=== PATIENT | female | born 1955 | race Caucasian/White ===

== ENCOUNTER → 2017-04-14 | Outpatient (CLI) | payer OTHER ==
[~2017-04-14] MED LIST: LEVO112T2 PO; METO25TA3 PO; OXYC1TAB63 PO; PRAV40TA2 PO; TROS20TA PO; ZOFR4TAB PO
[2017-04-14 10:25] LABS: AUTOMATED NEUTROPHIL # 4.4 TH/MM3 (1.8-7.7); BASOPHIL # 0.1 TH/MM3 (0-0.2); BASOPHIL % 0.9 % (0.0-2.0); EOSINOPHIL # 0.1 TH/MM3 (0-0.4); EOSINOPHIL % 1.6 % (0.0-4.0); HEMATOCRIT 39.2 % (35.0-46.0); HEMO FLAGS DIFF FINAL; LYMPH % 26.6 % (9.0-44.0); LYMPHOCYTE # 1.9 TH/MM3 (1.0-4.8); MEAN CELL VOLUME 81.9 FL (80.0-100.0); MEAN CORPUSCULAR HEMOGLOBIN 27.8 PG (27.0-34.0); MONO % 8.9 % (0.0-8.0); PLATELET COUNT 317 TH/MM3 (150-450); RED BLOOD COUNT 4.78 MIL/MM3 (4.00-5.30); RED CELL DISTRIBUTION WIDTH 14.7 % (11.6-17.2); WHITE BLOOD COUNT 7.1 TH/MM3 (4.0-11.0)
[2017-04-14 10:34] LABS: APTT (PATIENT) 25.2 SEC (24.3-30.1); PROTHROMBIN TIME - PATIENT 11.2 SEC (9.8-11.6)
[2017-04-14 10:50] LABS: ANION GAP 8 MEQ/L (5-15); AST (GOT) 18 U/L (15-37); BICARBONATE 27.9 MEQ/L (21.0-32.0); BLOOD UREA NITROGEN 10 MG/DL (7-18); CHLORIDE 103 MEQ/L (98-107); GLOMERULAR FILTRATION RATE 77 ML/MIN (>89); GLUCOSE,FASTING 97 MG/DL (74-99); POTASSIUM 4.5 MEQ/L (3.5-5.1); SODIUM (NA) 139 MEQ/L (136-145)
[2017-04-14 10:51] LABS: ALT (GPT) 30 U/L (10-53)
[2017-04-14 10:53] LABS: ALKALINE PHOSPHATASE 86 U/L (45-117); TOTAL BILIRUBIN ADULT 0.4 MG/DL (0.2-1.0)
--- NOTE | 2017-04-14 11:12 | RADRPT ---
EXAM DATE/TIME: 04/14/2017 10:37 [place] COMPARISON: No previous studies available for comparison. INDICATIONS : Evaluate for pneumonia, pneumothorax and communicable diseases. Pre-op for hysterectomy. MEDICAL HISTORY : Hypertension. SURGICAL HISTORY : None. ENCOUNTER: Initial ACUITY: 1 day PAIN SCORE: 0/10 LOCATION: Bilateral chest FINDINGS: PA and lateral views of the chest demonstrate the lungs to be symmetrically aerated without evidence of mass, infiltrate or effusion. The cardiomediastinal contours are unremarkable. Osseous structure s are intact. CONCLUSION: No acute disease. Arsh Martinez MD FACR on April 14, 2017 at 11:09 Board Certified Radiologist. This report was verified electronically.
--- NOTE | 2017-04-15 14:17 | EKG ---
Date Performed: 04/14/2017 Time Performed: 10:02:21 PTAGE: 61 years EKG: NORMAL Sinus rhythm NONDIAGNOSTIC Q WAVES INFERIOR LEADS NO PRIOR TRACING DOCTOR: Abdelrahmna Navarro Interpretating Date/Time 04/15/2017 14:16:11
== END ==
LOC: CPRE 09:42
PROVIDERS: ATTEND Obstetrics & Gynecology Gynecologic Oncology
DX: Z01.810 Encounter for preprocedural cardiovascular examination (principal); Z01.812 Encounter for preprocedural laboratory examination; C54.1 Malignant neoplasm of endometrium
CPT/HCPCS: 36415; 71020; 80053; 85025; 85610; 85730; 93005

== ENCOUNTER 2017-04-21 05:26 | Observation (INO) | payer OTHER ==
[~2017-04-21] VITALS: Ht 149.9 cm; Wt 82.9 kg
[~2017-04-21 05:26] MED LIST changes: -OXYC1TAB63 PO; -ZOFR4TAB PO
[2017-04-21] MEDS: LACTATED RINGER'S 1000 ML IV PRN (06:15)
[2017-04-21] MEDS ORDERED: CHLORHEXIDINE GLUCONATE 2 % 1 PACK (2 CLOTHS) TOPICAL PRN (06:15)
[2017-04-21] MEDS ORDERED: SODIUM CHLORID 0.9% 500 ML IV PRN (06:15)
[2017-04-21] MEDS ORDERED: POVIDONE IODINE 5% (ANTISEPSIS KIT) 4 APPLICATIONS EACH NARE PRN (06:15)
[2017-04-21] MEDS ORDERED: ceFAZolin 2 GM PREMIX 50 ML IV SCH (06:15)
[2017-04-21] MEDS ORDERED: INSULIN HUMAN REGULAR 1,000 UNITS/10 ML VIAL SQ PRN (06:15)
[2017-04-21] MEDS ORDERED: METOPROLOL TARTRATE 25 MG TAB PO PRN (06:15)
[2017-04-21] MEDS ORDERED: ZOFR4TAB PO (06:18)
[2017-04-21 06:21] VITALS: BP 169/74; PULSE 83; RESP 16; TEMP 99; O2SAT 96
[2017-04-21] MEDS ORDERED: SUGAMMADEX SODIUM 200 MG/2 ML VIAL IV PUSH ONE ×2 (06:51)
[2017-04-21] MEDS ORDERED: ACETAMINOPHEN 1000 MG/100 ML VIAL IV ONE (06:52)
[2017-04-21] MEDS ORDERED: HYDROmorphone HCL PF 2 MG/ML VIAL ONE (06:52)
[2017-04-21] MEDS ORDERED: FAMOTIDINE 20 MG/2 ML VIAL ONE (07:15)
[2017-04-21] MEDS ORDERED: MIDAZOLAM HCL 2 MG/2 ML VIAL ONE (07:15)
[2017-04-21] MEDS ORDERED: fentaNYL CITRATE 250 MCG/5 ML AMP ONE ×2 (07:15→10:48)
[2017-04-21] MEDS ORDERED: HEPARIN SODIUM - SQ 10,000 UNITS/ML VIAL SQ SCH (07:30)
[2017-04-21] MEDS ORDERED: METHYLENE BLUE 10 MG/ML VIAL OTHER ONE (09:05)
[2017-04-21] MEDS ORDERED: SODIUM CHLORIDE 0.9% FLUSH 10 ML FLUSH IV FLUSH PRN (10:30)
[2017-04-21] MEDS ORDERED: oxyCODONE/ACETAMINOPHEN 5 MG/325 MG TAB PO PRN ×2 (10:30)
[2017-04-21] MEDS ORDERED: LORazepam 0.5 MG TAB PO PRN (10:30)
[2017-04-21] MEDS ORDERED: DO NOT ADM ANY ANTICOAGULANT DRUGS PRN (10:40)
[2017-04-21] MEDS: KETOROLAC TROMETHAMINE 30 MG/ML (IVP) VIAL IVP SCH ×3 (11:00→22:22)
[2017-04-21] MEDS: D5-1/2 NS + KCL 20 MEQ INJ 1,000 ML IV SCH ×2 (11:06→21:28)
[2017-04-21] MEDS ORDERED: *RESP: ALBUTEROL 2.5 MG/3 ML NEB (PRN) PERIprocedural Use ONLY NEB ONE (11:36)
[2017-04-21] MEDS ORDERED: ONDANSETRON HCL 4 MG/2 ML VIAL IV PUSH ONE (12:00)
[2017-04-21] MEDS ORDERED: VECURONIUM BROMIDE 10 MG VIAL IV ONE (12:00)
[2017-04-21] MEDS ORDERED: ePHEDrine/NS 25 MG/5 ML SYR IV ONE (12:00)
[2017-04-21] MEDS ORDERED: PROPOFOL 200 MG/20 ML AMP IV ONE (12:00)
[2017-04-21] MEDS ORDERED: PHENYLEPH/NS 1000 MCG/10 ML SYR IV ONE (12:00)
[2017-04-21] MEDS ORDERED: NORMOSOL R INJ 1,000 ML IV ONE (12:00)
[2017-04-21 12:20] VITALS: BP 131/61; PULSE 103; RESP 20; TEMP 96.4; O2SAT 93
[2017-04-21 15:50] VITALS: BP 140/74; PULSE 105; RESP 20; TEMP 97.6; O2SAT 93
[2017-04-21] MEDS: ONDANSETRON HCL 4 MG/2 ML VIAL IVP PRN ×2 (16:27→22:21)
--- NOTE | 2017-04-21 16:29 | PD.ONC.PN ---
Subjective Subjective Remarks post op note: pt is resting in bed c/o slight nausea, RN informed reviewed her pain medications: Percocet and Toradol Objective Data Date Time Temp Pulse Resp B/P Pulse Ox O2 Delivery O2 Flow Rate FiO2 04/21/17 13:05 Nasal Cannula 3.00 04/21/17 12:20 96.4 103 20 131/61 93 04/21/17 12:00 97.7 101 21 144/69 98 Nasal Cannula 3 04/21/17 11:45 98 15 145/73 94 Nasal Cannula 3 04/21/17 11:30 97 16 148/75 92 Nasal Cannula 4 04/21/17 11:15 92 16 150/72 97 Nasal Cannula 4 04/21/17 11:00 91 15 137/69 94 Nasal Cannula 4 04/21/17 10:50 Nasal Cannula 4 04/21/17 10:45 92 19 138/69 95 Simple Mask 10 04/21/17 10:43 97.6 94 22 138/62 95 Simple Mask 10 04/21/17 06:21 99.0 83 16 169/74 96 04/21/17 04/21/17 04/21/17 07:00 15:00 23:00 Intake Total 1634 ml Output Total 550 ml Balance 1084 ml Laboratory Results Laboratory Tests Test 04/21/17 06:20 Blood Type A POSITIVE Antibody Screen NEGATIVE Blood Bank Comment Administered Medications Medications (Trade) Dose Ordered Sig/Rahat Route PRN Reason Start Time Stop Time Status Last Admin Dose Admin Lactated Ringer's 1,000 ml @ 30 mls/hr Q24H PRN IV SEE LABEL COMMENTS 04/21/17 06:15 04/24/17 06:14 04/21/17 06:15 Potassium Chloride/Dextrose/ Sod Cl (D5-1/2 NS + KCl 20 Meq Inj) 1,000 ml @ 100 mls/hr Q10H IV 04/21/17 11:00 04/21/17 11:06 Ketorolac Tromethamine (Toradol Inj) 15 mg Q6H IVP 04/21/17 11:00 04/22/17 05:01 04/21/17 11:00 Objective Remarks GENERAL: Well-nourished, well-developed patient. SKIN: Warm and dry. HEAD: Normocephalic. EYES: No scleral icterus. No injection or drainage. CARDIOVASCULAR: Regular rate and rhythm without murmurs. RESPIRATORY: Breath sounds equal bilaterally. No accessory muscle use. GASTROINTESTINAL: SS are c/d/i EXTREMITIES: TEDs and SCDs MUSCULOSKELETAL: Adequate muscle tone. NEUROLOGICAL: No obvious focal deficit. Awake, alert, and oriented x3. PSYCHIATRIC: Appropriate mood and affect; insight and judgment normal. Assessment/Plan Problem List: (1) Endometrial cancer Status: Acute Plan: s/p RA lap hyst with BSO final pathology pending (2) Post-operative state Status: Acute Plan: pain meds per EMR ADAT OOB to chair deena D/C sean in AM IS at bedside and pt using anticipate D/C home tomorrow Jailyn Sebastian Apr 21, 2017 16:28
[2017-04-21 20:00] VITALS: BP 157/82; PULSE 110; RESP 20; TEMP 96.2; O2SAT 97
[2017-04-21] MEDS: SODIUM CHLORIDE 0.9% FLUSH 10 ML FLUSH IV FLUSH SCH (21:00)
[2017-04-21] MEDS: METOPROLOL TARTRATE 25 MG TAB PO SCH (21:29)
[2017-04-22] VITALS: BP 132/65; PULSE 110; RESP 20; TEMP 97.5; O2SAT 95
[2017-04-22 04:37] VITALS: BP 123/63; PULSE 107; RESP 18; TEMP 97.8; O2SAT 93
[2017-04-22] MEDS: KETOROLAC TROMETHAMINE 30 MG/ML (IVP) VIAL IVP SCH (05:29)
[2017-04-22] MEDS ORDERED: LEVOTHYROXINE SODIUM 112 MCG TAB PO SCH (06:00)
[2017-04-22 06:59] LABS: AUTOMATED NEUTROPHIL # 10.5 TH/MM3 (1.8-7.7); BASOPHIL % 0.1 % (0.0-2.0); HEMATOCRIT 35.2 % (35.0-46.0); HEMO FLAGS DIFF FINAL; LYMPH % 8.6 % (9.0-44.0); LYMPHOCYTE # 1.1 TH/MM3 (1.0-4.8); MEAN CELL VOLUME 81.6 FL (80.0-100.0); MEAN CORPUSCULAR HEMOGLOBIN 27.3 PG (27.0-34.0); MEAN CORPUSCULAR HGB CONC 33.4 % (32.0-36.0); MONO % 6.9 % (0.0-8.0); NEUT % 84.4 % (16.0-70.0); PLATELET COUNT 254 TH/MM3 (150-450); RED BLOOD COUNT 4.32 MIL/MM3 (4.00-5.30); RED CELL DISTRIBUTION WIDTH 14.8 % (11.6-17.2); WHITE BLOOD COUNT 12.5 TH/MM3 (4.0-11.0)
[2017-04-22] MEDS: D5-1/2 NS + KCL 20 MEQ INJ 1,000 ML IV SCH (07:00)
[2017-04-22] MEDS ORDERED: OXYC1TAB63 PO (07:12)
[2017-04-22 07:19] LABS: BICARBONATE 22.1 MEQ/L (21.0-32.0); POTASSIUM 4.3 MEQ/L (3.5-5.1)
[2017-04-22] MEDS: LACTATED RINGER'S 1000 ML IV PRN (07:54)
[2017-04-22] MEDS: SODIUM CHLORIDE 0.9% FLUSH 10 ML FLUSH IV FLUSH SCH (07:55)
--- NOTE | 2017-04-22 07:56 | MP ---
cc: GRICELDA GÓMEZ M.D., KELLY L. MD HARMON, JASON M.D. DATE OF SURGERY 04/21/2017 PREOPERATIVE DIAGNOSIS Endometrial cancer grade 1. POSTOPERATIVE DIAGNOSIS Endometrial cancer grade 1, plus pelvic adhesions. PROCEDURE Robotic-assisted laparoscopic hysterectomy, bilateral salpingo-oophorectomy, lysis of adhesions. 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 Biopsy showed grade 1 endometrial adenocarcinoma arising from a background of complex atypical hyperplasia. She was counseled regarding these findings, presented with options and wanted to move forward with surgery. She is seen in the preop holding area where these findings and surgery are again discussed. Questions were answered. She expressed good understanding and wanted to move forward. FINDINGS The uterine cavity sounded to 6 cm. The uterus grossly appeared normal. Ovaries appeared normal. She is status post tubal ligation. There were no appreciably enlarged pelvic or para-aortic lymph nodes. The peritoneal surfaces are smooth. There is no evidence of tumor implants. There are some adhesions in the pelvis and colon adherent to the left pelvic sidewall, some obliteration of the left cul-de-sac and left ovary adherent to the sidewall. Preliminary evaluation of the uterus once removed showed the tumor to be approximately 3 cm in diameter, predominantly exophytic. The wall of the uterus was approximately 16 mm thick. Estimated invasion was approximately 3 mm. There was no endocervical extension. PROCEDURE The patient taken to the operating room, placed in the dorsal lithotomy position after general endotracheal anesthesia was administered. Time-out was undertaken. She was identified by sight recognition and hospital ID bracelet and the proposed procedure was reviewed and confirmed. She was carefully positioned in padded Rosalino stirrups. Her arms were padded and secured to the sides. She was further secured to the operating table with egg crate padding and tape in a cross chest over the shoulder fashion. All sites were noted to be properly aligned with no malalignments or pressure points. She was prepped in a sterile fashion, draped below the waist, placed in high lithotomy position, cervix was grasped, uterine cavity sounded and the cervix dilated. A small V-Care manipulator was inserted and secured in the usual fashion. Rosales catheter placed in the bladder. She was returned to low lithotomy position, a change of sterile gloves was undertaken. We completed draping in anticipation of laparoscopy. After confirming that an orogastric tube was in the stomach on suction, with manual elevation of the abdominal wall and direct laparoscopic visualization, a 5 mm cannula was placed in the left upper quadrant. Carbon dioxide gas was insufflated and an atraumatic entry was confirmed. A 12 mm cannula was placed in the midline above the umbilicus. An 8 mm cannula was placed in the right upper and left lateral quadrant. The original five exchanged for an 8-mm cannula. She was placed in steep Trendelenburg position. Peritoneal washings were obtained for cytology. The anatomy was reviewed with findings as described above. Small bowel was folded back on the mesenteric root. Three Ray-Alyce sponges were placed along the root of the small bowel mesentery. The robotic system brought into the operative field, attached in the usual fashion. Monopolar scissors, fenestrated bipolar forceps and Prograsp manipulators placed in arms #1, 2 and 3 respectively and I took my place at the surgeon's console. The right round ligament isolated, cauterized and transected. The anterior and posterior leafs of the broad ligament were opened. The right ureter was identified. The right infundibulopelvic ligament was isolated. The infundibulopelvic ligament was mobilized to the level of the pelvic brim where it was cauterized and transected. Posterior peritoneum opened along the right side of the uterus and cervix and the right vesicouterine peritoneum dissected off the lower uterine segment and cervix. Right uterine vessels skeletonized, cauterized and transected as were the Cardinal, paracervical and uterosacral ligaments. Attention was directed toward the left side. Adhesions were taken down to mobilize the colon to free the ovary from the sidewall and to open the posterior cul-de-sac with sharp dissection. The left round ligament was isolated, cauterized transected. The anterior and posterior leafs of the broad ligament were further opened. The left ureter was identified. The left infundibulopelvic ligament was isolated, dissected to the level of the pelvic brim where it was cauterized and transected. The posterior peritoneum opened and the left vesicouterine peritoneum was dissected off the lower uterine segment and cervix. The left uterine vessels were skeletonized, cauterized and transected as were the Cardinal, paracervical and uterosacral ligaments. Colpotomy was performed the cervix from the upper vagina. The specimen was withdrawn transvaginally which included uterus, cervix, tubes and ovaries and a Pneumooccluder balloon was placed in vagina to maintain pneumoperitoneum. Instruments one and three exchanged for needle drivers. As a 0 Vicryl suture was introduced, the vaginal cuff was closed starting at the left corner full-thickness closure including uterosacral ligament, posterior peritoneum, tied via instrument tie. The sutures was held on counter traction as a running full-thickness continuous closure was carried across the vaginal apex to the contralateral corner where it was similarly fixed, tied, secured and the needle was cut and removed. The integrity of the bladder was confirmed by filling the bladder with saline dyed with methylene blue. There were no thin spots in the bladder. No extravasation of dye. There was a good margin between the bladder edge and the vaginal cuff suture line. Good peristalsis of ureters bilaterally and the bladder was drained. The pelvis was thoroughly irrigated. Small bleeders rendered hemostatic with bipolar cautery. Hemostatic Dasha was placed across the vaginal cuff. Pathology came back showing a very superficially invading low grade tumor. It was felt that the chance of metastatic disease beyond the uterus was low and that lymphadenectomy would be associated with morbidity that may exceed potential benefit. Robotic instruments were removed. The robotic system was disengaged from the operative field. I reentered bedside under sterile condition. Each of the three Ray-Alyce sponges were now removed through the 12-mm cannula. Each were inspected and noted to be removed in their entirety. Inspection of the peritoneal cavity confirmed good hemostasis and no remaining foreign objects. Preliminary counts were correct. The 12-mm fascial defect was closed with 0 Vicryl sutures using a needle pass apparatus, tied securely, rendered the fascia completely airtight and hemostatic. The remaining cannulas were withdrawn. Carbon dioxide gas was removed from the peritoneal cavity. 3-0 Vicryl subcutaneous 3-0 Vicryl subcuticular and Steri-Strips used to close these incisions. She was turned into the dorsal lithotomy position. Exam confirmed the vaginal cuff was well supported and hemostatic. No remaining foreign objects in the vagina. No vaginal lacerations. Superficial irritation at the introitus. The remaining hemostatic Dasha agent was placed at the vaginal cuff and at the introitus. Final counts were correct. She was returned to dorsal supine position and was pending reversal of anesthesia when I left operating room to precede her Post Anesthesia Care Unit. MD CECILIA Palm/JACOB /11:23 AM /7:36 AM
[2017-04-22] MEDS: METOPROLOL TARTRATE 25 MG TAB PO SCH (08:10)
[2017-04-22 08:55] VITALS: BP 140/63; PULSE 99; RESP 20; TEMP 97.4; O2SAT 94
[2017-04-22] MEDS ORDERED: PRAVASTATIN SOD 40 MG TAB PO SCH (09:00)
[2017-04-22] MEDS ORDERED: TROSPIUM PO SCH (09:00)
--- NOTE | 2017-04-26 15:56 | MD ---
cc: MAXIMILIAN GOMEZ DR. RANIER MOLPUS,GRICELDA CABRERA MD, M.D. ADMISSION DATE: 04/21/2017 DISCHARGE DATE: 04/22/2017 PROCEDURE 04/21/2017 robotic-assisted laparoscopic hysterectomy, bilateral salpingo-oophorectomy, lysis of adhesions. DIAGNOSIS Endometrial cancer. HOSPITAL COURSE She did well during the first 24 hours, postop tolerated oral and solid intake. Rosales catheter removed pending voiding. She has been out of bed, hemodynamically stable. Ins and outs 2114/1550. Labs this morning H&H 11.8 and 35.2. Electrolytes pending. PHYSICAL EXAMINATION VITAL SIGNS: Afebrile, pulse 91 to 110, respirations 15-20, blood pressure 123-157 over 61 to 82, O2 saturations greater than equal to 93% while asleep, 95% while awake. GENERAL: Alert and oriented x3. LUNGS: Clear except for mild rales at the bases. CARDIOVASCULAR: Regular rate and rhythm. ABDOMEN: Soft. Incisions clean and dry. MOLDER LABELS: No bleeding. EXTREMITIES: Nontender. ASSESSMENT Postop day #1 doing well in early postop. The findings, preliminary pathology discussed and reviewed. Activities, restrictions reviewed. Questions were answered. She expressed good understanding, appears to be meeting criteria for discharge to home. PLAN Therefore anticipate discharge to home. She is to contact our office to schedule follow up in 2 weeks. She is to resume prior medication. Prescription is provided for Percocet and our office number is made available. She is to ensure she has a follow-up in 2 weeks and to contact our office between now and then should she have any questions or problems. MD CECILIA Palm/FILEMON /7:19 AM /3:41 PM
== END 2017-04-22 11:38 | disposition home or self-care (01) ==
LOC: HSDC 05:26 → HSDI 10:31 → HOCB 12:15 → HOCA 18:16
PROVIDERS: ADMIT Obstetrics & Gynecology Gynecologic Oncology; ATTEND Obstetrics & Gynecology Gynecologic Oncology
DX: C54.1 Malignant neoplasm of endometrium (principal); N83.8 Other noninflammatory disorders of ovary, fallopian tube and broad ligament; N73.6 Female pelvic peritoneal adhesions (postinfective); I25.10 Atherosclerotic heart disease of native coronary artery without angina pectoris; I10 Essential (primary) hypertension; E78.5 Hyperlipidemia, unspecified; K21.9 Gastro-esophageal reflux disease without esophagitis; Z88.4 Allergy status to anesthetic agent
CPT/HCPCS: 58571; 80048; 85025; 86850; 86900; 86901; 88309; 88329; 94150; 94664; G0378; J0131; J0690; J1170; J1644; J1885; J2250; J2370; J2405; J3010; J3480; J7120; J7613; 88307; 88331